=== PATIENT | female | born 1960 | race Caucasian/White ===

== ENCOUNTER 2017-12-25 18:33 | Outpatient (CLI) | payer SELFPAY ==
--- NOTE | 2017-12-25 20:30 | RAD ---
SINGLE VIEW OF THE CHEST: 12/25/17 INDICATION: Possible aspiration. COMPARISON: None. FINDINGS: Low lung volumes and respirator motion artifact limits image detail. No henry consolidation, pleural effusion or pneumothorax is evident. There is cardiomegaly. There is accentuation of the pulmonary vasculature by the low lung volumes. No pneumothorax is evident. No acute osseous abnormality is evident. IMPRESSION: 1. Low lung volumes. 2. Mild cardiomegaly. 3. No henry consolidation to suggest presence of aspiration. POS: [facility]
== END 2017-12-25 18:34 | disposition home or self-care (01) ==
LOC: HS RAD 18:33
PROVIDERS: ATTEND Internal Medicine
DX: I51.7 Cardiomegaly (principal)
CPT/HCPCS: 71045